=== PATIENT | female | born 1960 | race Caucasian/White ===

== ENCOUNTER 2020-02-29 06:27 | Day surgery (SDC) | payer BC, OTHER ==
[~2020-02-29] VITALS: Ht 157.5 cm; Wt 99.5 kg
[~2020-02-29 06:27] MED LIST: HUMIRA40 MG/0.1 SUB-Q; LEVOTHYROXINE150 MCG PO; METHOTREXATE2.5 MG PO; PREDNISONE20 MG PO
--- NOTE | 2020-02-29 07:57 | NUR ---
02/29/20 0757 Jade Medina 0752- PT TO PACU IN LL POSITION. EYES OPEN. DROWSY. ANSWERS QUESTIONS APPROPRIATELY. BREATHING EASY AND UNLABORED. SPO2 >95% ON 3 L O2 VIA NC. PT EDUCATED ON POC IN PACU. PT DENIES PAIN AND ENCOURAGED TO PASS GAS. 0757- PT PASSING SOME GAS. CONTINUES TO DENY PAIN. ASKING QUESTIONS ABOUT PROCEDURE.
--- NOTE | 2020-02-29 09:37 | NUR ---
PT ALERT, ORIENTED AND HERE FOR FIRST SCOPE. PT MENTIONED THAT PREP WAS A BIT OF A CHALLENGE, BUT SEEMED TO DEAL WITH IT APPROPRIATELY.PT'S S.I.L. WILL BE HERE FOLLOWING DC. PT DECLINED PRAYER AT THIS TIME. EXTENDED A BLESSING
--- NOTE | 2020-03-01 06:29 | OR ---
[facility] [address], [place] [address] Signed DATE OF OPERATION: 02/29/2020 SURGEON: Shanti Madison MD PREOPERATIVE DIAGNOSIS: Screening. POSTOPERATIVE DIAGNOSIS: Mild to moderate pandiverticulosis. PROCEDURE: Colonoscopy without biopsy. ESTIMATED BLOOD LOSS: None. INDICATIONS: Deanna is a 59-year-old female, asked to see me for a screening colonoscopy. She has no lower GI complaints. There is no family history of colon cancer or polyps. In the office, I gave her a pamphlet on colonoscopy and we looked at that together along with the risks including, but not limited to gas bloating, crampy abdominal pain, bleeding, perforation requiring surgery, and missed diagnosis. We also discussed the need for IV conscious sedation. She had expressed understanding and wished to proceed. PROCEDURE NOTE: Deanna was taken into our endoscopy suite and placed in the left lateral decubitus position. She was given 6 mg of Versed and 150 mcg of fentanyl to cover the case. A digital rectal exam was performed and this was unremarkable. The adult colonoscope was introduced and advanced all around into the cecum under direct visualization of camera without difficulty. Her prep was quite excellent. The scope was slowly withdrawn. We took pictures throughout for photodocumentation. She does have diverticulitis throughout the entire colon. They were minimal to moderate in size, few in number, and scattered about. There was no polyps. The rectum was unremarkable. Upon retroflexion of scope, there was no additional pathology noted above the anal canal. After this, the gas was suctioned out and the colonoscope removed. Deanna tolerated the procedure quite well. RECOMMENDATIONS: Deanna can follow up in 10 years for a repeat colonoscopy. Electronically Signed By: SHANTI MADISON MD 03/01/20 0629 PATIENT NAME: DEANNA MARIE OPERATIVE REPORT DATE OF : 60 REPORT #: [id number] PHYSICIAN: SHANTI MADISON MD PCP: MARTI SÁNCHEZ MD REPORT IS CONFIDENTIAL AND NOT TO BE RELEASED WITHOUT AUTHORIZATION [address] [address] Signed Shanti Madison MD ALB/MODL /[id number] cc: MD Marti Garnica MD Copies: SHANTI MADISON MD, RUSSELL BARR MD ~ Electronically Signed By: SHANTI MADISON MD 03/01/20 0629 PATIENT NAME: DEANNA MARIE OPERATIVE REPORT DATE OF : 60 REPORT #: [id number] PHYSICIAN: SHANTI MADISON MD PCP: MARTI SÁNCHEZ MD REPORT IS CONFIDENTIAL AND NOT TO BE RELEASED WITHOUT AUTHORIZATION
== END 2020-02-29 08:35 | disposition home or self-care (01) ==
LOC: OPS 06:27 → DS 06:27 → OPS 06:45
PROVIDERS: ATTEND Colon & Rectal Surgery
PROC: 0DJD8ZZ Inspection of Lower Intestinal Tract, Via Natural or Artificial Opening Endoscopic (ICD-10-PCS; principal; 2020-02-29 06:45)
DX: Z12.11 Encounter for screening for malignant neoplasm of colon (principal); K57.30 Diverticulosis of large intestine without perforation or abscess without bleeding; E03.9 Hypothyroidism, unspecified; M06.9 Rheumatoid arthritis, unspecified; Z88.0 Allergy status to penicillin; Z79.899 Other long term (current) drug therapy
CPT/HCPCS: 99153; G0500; J2250; J2405; J3010; J7121

== ENCOUNTER 2022-11-10 08:12 | Emergency (ER) | payer BC ==
[~2022-11-10] VITALS: Ht 157.5 cm; Wt 95.2 kg
--- OUTSIDE RECORDS SUMMARY | ~2022-11-10 | XMS | Continuity of Care Document ---
Demographics + + + | Address | [address] | | | [place] [address] | + + + | Preferred Language | Unknown | + + + | Marital Status | Never | + + + | Sikhism Affiliation | Unknown | + + + | Race | White | + + + | Ethnic Group | Unknown | + + + Author + + + | Author | [facility] | + + + | Organization | [facility] | + + + | Address | [address] | | | [place] [address] | + + + | Phone | | + + + Care Team Providers + + + + | Care Senior Electrical Project Manager Name | Role | Phone | + + + + Unavailable | Unavailable | + + + + Unavailable | Unavailable | + + + + Unavailable | Unavailable | + + + + Allergies and Intolerances + + + + + | date | description | facility | type | + + + + + | (no date) | Mild | [facility] | (unknown) | | | | [facility] | | | | | [facility] | | + + + + + | (no date) | Rash | [facility] | (unknown) | | | | [facility] | | | | | [facility] | | + + + + + | (no date) | AMOXICILLIN | [facility] | (unknown) | | | | [facility] | | | | | [facility] | | + + + + + | (no date) | AMOXICILLIN | [facility] | (unknown) | | | | [facility] | | | | | [facility] | | + + + + + | (no date) | AMOXICILLIN | [facility] (unknown) | | | [facility] | | + + + + + | (no date) | AMOXICILLIN | [facility] (unknown) | | | [facility] | | + + + + + Encounters No information. Functional Status No information. Immunizations No information. Medications + + + + | date | description | facility | + + + + | 2020-07-05 00:00 | methotrexate 2.5 mg oral | [facility] | | | tablet | [facility] | + + + + | 2020-03-21 00:00 | 0.4 ml humira 100 mg/ml | [facility] | | | auto-injector | [facility] | + + + + | 2020-04-20 00:00 | ibuprofen 600 mg oral | [facility] | | | tablet | [facility] | + + + + | 2020-07-05 00:00 | folate 1 mg oral tablet | [facility] | | | | [facility] | + + + + | 2020-07-06 00:00 | levothyroxine sodium 0.15 | [facility] | | | mg oral tablet | [facility] | + + + + Problems + + + + | date | description | facility | + + + + | 2016-02-06 00:00 | 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) | [facility] | + + + + | 2016-02-06 00:00 | Seropositive rheumatoid | [facility] | | | arthritis | [facility] | + + + + | 2017-02-18 00:00 | history of high risk | [facility] | | | medication (situation) | [facility] | + + + + | 2017-02-18 00:00 | Long-term use of high-risk | [facility] | | | medication | [facility] | + + + + | 2019-08-02 13:55:51 | Other specified diseases | [facility] | | | of liver | | + + + + | 2019-08-02 13:55:51 | Other care home (current) | [facility] | | | drug therapy | | + + + + | 2019-08-31 12:43:46 | Rheumatoid arthritis with | [facility] | | | rheumatoid factor, | | | | unspecified (HCC) | | + + + + | 2019-08-31 12:43:46 | Other care home (current) | [facility] | | | drug therapy | | + + + + | 2019-08-31 13:56:40 | Rheumatoid arthritis with | [facility] | | | rheumatoid factor, | | | | unspecified (HCC) | | + + + + | 2019-08-31 13:56:40 | Other care home (current) | [facility] | | | drug therapy | | + + + + | 2019-09-01 09:45:50 | Rheumatoid arthritis with | [facility] | | | rheumatoid factor, | | | | unspecified (HCC) | | + + + + | 2019-09-01 09:45:50 | Other terminal superintendent (current) | [facility] | | | drug therapy | | + + + + | 2019-09-02 02:12:43 | Rheumatoid arthritis with | [facility] | | | rheumatoid factor, | | | | unspecified (HCC) | | + + + + | 2019-09-02 02:12:43 | Other terminal superintendent (current) | [facility] | | | drug therapy | | + + + + | 2020-03-01 13:10:29 | Other specified diseases | [facility] | | | of liver | | + + + + | 2020-03-01 13:10:29 | Other terminal superintendent (current) | [facility] | | | drug therapy | | + + + + | 2020-03-01 13:12:53 | Rheumatoid Arthritis | [facility] | + + + + | 2020-03-01 13:19:49 | Rheumatoid arthritis with | [facility] | | | rheumatoid factor, | | | | unspecified (HCC) | | + + + + | 2020-03-01 13:19:49 | Other care home (current) | [facility] | | | drug therapy | | + + + + | 2020-03-01 14:31:49 | Rheumatoid arthritis with | [facility] | | | rheumatoid factor, | | | | unspecified (HCC) | | + + + + | 2020-03-01 14:31:49 | Other terminal superintendent (current) | [facility] | | | drug therapy | | + + + + | 2020-03-01 14:39:32 | Rheumatoid arthritis with | [facility] | | | rheumatoid factor, | | | | unspecified (HCC) | | + + + + | 2020-03-01 14:39:32 | Other terminal superintendent (current) | [facility] | | | drug therapy | | + + + + | 2020-08-08 09:34:21 | Other specified diseases | [facility] | | | of liver | | + + + + | 2020-08-08 09:34:21 | Other care home (current) | [facility] | | | drug therapy | | + + + + | 2020-08-17 11:15:18 | Rheumatoid Arthritis | [facility] | + + + + | 2020-08-17 11:16:10 | Rheumatoid arthritis with | [facility] | | | rheumatoid factor, | | | | unspecified (HCC) | | + + + + | 2020-08-17 11:16:10 | Other care home (current) | [facility] | | | drug therapy | | + + + + | 2020-08-17 12:02:04 | Rheumatoid arthritis with | [facility] | | | rheumatoid factor, | | | | unspecified (HCC) | | + + + + | 2020-08-17 12:02:04 | Other terminal superintendent (current) | [facility] | | | drug therapy | | + + + + | 2020-08-17 12:05:35 | Rheumatoid arthritis with | [facility] | | | rheumatoid factor, | | | | unspecified (HCC) | | + + + + | 2020-08-17 12:05:35 | Other terminal superintendent (current) | [facility] | | | drug therapy | | + + + + | 2020-08-17 12:05:52 | Rheumatoid arthritis with | [facility] | | | rheumatoid factor, | | | | unspecified (HCC) | | + + + + | 2020-08-17 12:05:52 | Other terminal superintendent (current) | [facility] | | | drug therapy | | + + + + | 2021-01-16 13:23:10 | Other specified diseases | [facility] | | | of liver | | + + + + | 2021-01-16 13:23:10 | Other terminal superintendent (current) | [facility] | | | drug therapy | | + + + + | 2021-05-03 08:42:56 | Other specified diseases | [facility] | | | of liver | | + + + + | 2021-05-03 08:42:56 | Other care home (current) | [facility] | | | drug therapy | | + + + + | 2021-05-17 07:39:06 | Other specified diseases | [facility] | | | of liver | | + + + + | 2021-05-17 07:39:06 | Other terminal superintendent (current) | [facility] | | | drug therapy | | + + + + | 2021-05-17 07:49:32 | Other specified diseases | [facility] | | | of liver | | + + + + | 2021-05-17 07:49:32 | Other terminal superintendent (current) | [facility] | | | drug therapy | | + + + + | 2021-05-17 08:37:27 | Rheumatoid arthritis with | [facility] | | | rheumatoid factor, | | | | unspecified (HCC) | | + + + + | 2021-05-17 08:37:27 | Other terminal superintendent (current) | [facility] | | | drug therapy | | + + + + | 2021-05-18 00:17:26 | Rheumatoid arthritis with | [facility] | | | rheumatoid factor, | | | | unspecified (HCC) | | + + + + | 2021-05-18 00:17:26 | Other care home (current) | [facility] | | | drug therapy | | + + + + | 2021-10-31 10:39:13 | Rheumatoid arthritis with | [facility] | | | rheumatoid factor, | | | | unspecified (HCC) | | + + + + | 2021-10-31 10:39:13 | Other care home (current) | [facility] [place] [place] | | | drug therapy | | + + + + | 2022-06-05 09:17:45 | [facility] | | [facility], | [facility] | | | unspecified (HCC) | | + + + + | 2022-06-05 09:17:45 | Other care home (current) | [facility] | | | drug therapy | CENTER | + + + + | 2022-06-19 09:56:01 | Rheumatoid arthritis with | [facility] | | | rheumatoid factor, | CENTER | | | unspecified (HCC) | | + + + + | 2022-06-19 09:56:01 | Other care home (current) | [facility] | | | drug therapy | CENTER | + + + + Procedures No information. Results/Labs No information. Social History + + + + | date | description | facility | + + + + | 2020-03-01 00:00 | Former smoker | [facility] | | | | [facility] | + + + + | 2020-07-06 00:00 | Current smoker | [facility] | | | | [facility] | + + + + Vital Signs No information."
[2022-11-10 10:43] VITALS: BP 148/77
== END 2022-11-10 10:45 | disposition home or self-care (01) ==
LOC: ED 08:12
DX: S83.92XA Sprain of unspecified site of left knee, initial encounter (principal); X50.1XXA Overexertion from prolonged static or awkward postures, initial encounter; Z87.891 Personal history of nicotine dependence; Z88.0 Allergy status to penicillin; Z79.890 Hormone replacement therapy
CPT/HCPCS: 73560; 99283 25

== ENCOUNTER 2023-06-25 14:45 | Emergency (ER) | payer BC ==
[~2023-06-25] VITALS: Ht 157.5 cm; Wt 83.0 kg
[2023-06-25 15:50] LABS: INFLUENZA B NAA NEGATIVE (NEGATIVE); RESPIRATORY SYNCYTIAL VIR NAA NEGATIVE (NEGATIVE)
[2023-06-25] MEDS ORDERED: METFORMIN HCL500 M1 PO (17:28)
[2023-06-25] MEDS ORDERED: ACETAMINOPHEN 500 MG TAB PO ONE (18:15)
[2023-06-25] MEDS ORDERED: SODIUM CHLORIDE 0.9% 1,000 ML IV ONE (18:15)
[2023-06-25 18:41] LABS: BASOPHILS 0.5 % (0-2); EOSINOPHILS 1.4 % (0-6); HEMATOCRIT 40.3 % (35.0-50.0); HEMOGLOBIN 13.5 g/dL (12.0-18.0); LYMPHOCYTES 23.8 % (24-44); MCH 29.3 (27-36); MCHC 33.5 g/dl (30-36); MCV 87.4 fl (81-99); MONOCYTES 8.5 % (0-12); NEUTROPHILS 65.8 % (39-80); PLATELET COUNT 261 K/uL (140-440); RBC 4.61 M/ul (4.3-5.7); RDW 12.7 (10.5-15.0)
[2023-06-25 18:55] LABS: ALBUMIN/GLOBULIN RATIO 0.63 (1.1-2.4); BILIRUBIN, TOTAL 0.4 ng/dL (0.2-1.0); BUN/CREATININE RATIO 24.65 (6.0-28.6); CALCIUM 9.1 mg/dL (8.5-10.1); CREATININE, SERUM 0.73 mg/dL (0.55-1.02); PROTEIN, TOTAL 7.8 g/dL (6.4-8.2)
[2023-06-25] MEDS ORDERED: ZITHROMAX250 MG PO (19:59)
[2023-06-25] MEDS ORDERED: AZITHROMYCIN 250 MG TAB PO ONE (20:00)
[2023-06-25 20:14] VITALS: BP 121/66
[2023-06-25] MEDS ORDERED: IBUPROFEN 600 MG TAB PO ONE (20:15)
== END 2023-06-25 20:15 | disposition home or self-care (01) ==
LOC: ED 14:45
PROVIDERS: Emergency Medicine
DX: J40 Bronchitis, not specified as acute or chronic (principal); H66.92 Otitis media, unspecified, left ear; M06.9 Rheumatoid arthritis, unspecified; Z87.891 Personal history of nicotine dependence; Z79.84 Long term (current) use of oral hypoglycemic drugs; Z79.899 Other long term (current) drug therapy; Z88.0 Allergy status to penicillin
CPT/HCPCS: 36415; 71045; 80053; 85025; 87502; 99283-25; A9270; J7030; U0002